=== PATIENT | female | born 1965 | race Hispanic/Latino ===

== ENCOUNTER 2017-12-20 08:26 | Day surgery (SDC) | payer BC, OTHER ==
[~2017-12-20] VITALS: Ht 152.4 cm; Wt 57.6 kg
[~2017-12-20 08:26] MED LIST: CHOLESTEROL MED; CIPROFLOXACN500 MG PO; LISINOP/HCTZ1 TA2 PO; LORTAB 7.5 PO; METFORMIN500 MG PO; PROTONIX40 MG PO; SIMVASTATIN20 MG PO; TRAMADOL HCL50 MG PO; TYLENOL 500MG TAB PO; ULTRAM50 MG PO; ZOFRAN ODT4 MG PO
[2017-12-20 11:49] VITALS: BP 135/81
== END 2017-12-20 11:00 | disposition home or self-care (01) | DRG 392 ==
LOC: ENDO 08:26 → ORM 10:15 → ENDO 10:15
PROVIDERS: ATTEND Surgery
PROC: 0DJ08ZZ Inspection of Upper Intestinal Tract, Via Natural or Artificial Opening Endoscopic (ICD-10-PCS; principal; 2017-12-20)
DX: R13.10 Dysphagia, unspecified (principal); R11.2 Nausea with vomiting, unspecified; Z90.3 Acquired absence of stomach [part of]

== ENCOUNTER 2018-02-22 17:46 | Observation (INO) | payer BC, OTHER ==
[~2018-02-22] VITALS: Ht 152.4 cm; Wt 57.2 kg
[2018-02-22 18:52] LABS: IMMATURE GRANULOCYTES 0.4 % (0.0-1.0); MEAN CORPUSCULAR HGB 19.8 pG CALC (26.0-32.0); MEAN CORPUSCULAR HGB CONC 27.5 g/L CALC (32.0-36.0); NEUT# 4.64 thou/uL (2.00-7.15); RED BLOOD COUNT 3.39 mill/uL (4.20-5.60); RED CELL DISTRI WIDTH 16.1 % (11.5-15.5)
[2018-02-22 18:58] LABS: ALKALINE PHOSPHATASE 86 u/l (38-126); ANION GAP 14 (6-22 (CALC)); BILIRUBIN, TOTAL 0.1 mg/dL (0.0-1.4); BUN 21 mg/dL (7-17); BUN/CREATININE RATIO 28 (12-20 (CALC)); CARBON DIOXIDE 25 mmol/l (22-30); CHLORIDE 103 mmol/l (95-108); CREATININE 0.8 mg/dL (0.5-1.0); GFR > 60 ML/MIN (>=60 (CALC)); GFR FOR AFR.AMER. > 60 ML/MIN (>=60 (CALC)); POTASSIUM 4.4 mmol/l (3.5-5.1); SGOT/AST 38 u/l (14-36); SGPT/ALT 34 u/l (9-52); SODIUM 137 mmol/l (137-146)
[2018-02-22 18:59] LABS: ACT PARTIAL THROMBO TIME 24.2 SECONDS (20.0-32.5); INTERNATIONAL NORMALIZED RATIO 0.9 RATIO (0.7-1.3); PROTHROMBIN TIME 9.8 SECONDS (9.0-12.5)
[2018-02-22 19:00] LABS: HEMATOCRIT 24.4 % (37.0-47.0); HEMOGLOBIN 6.7 g/dl (12.0-16.0)
[2018-02-22 19:01] LABS: ALBUMIN 2.6 g/dL (3.2-5.0); TOTAL PROTEIN 5.1 g/dL (6.3-8.2)
[2018-02-22 19:33] LABS: URINE BILIRUBIN - DIPSTICK NEGATIVE (NEGATIVE); URINE BLOOD DIPSTICK NEGATIVE (NEGATIVE); URINE COLOR YELLOW; URINE GLUCOSE - DIPSTICK NEGATIVE (NEGATIVE); URINE KETONE NEGATIVE (NEGATIVE); URINE LEUK ESTERASE NEGATIVE (NEGATIVE); URINE NITRITE - DIPSTICK NEGATIVE (Negative); URINE PROTEIN - DIPSTICK NEGATIVE (NEG-TRACE); URINE SPECIFIC GRAVITY <=1.005; URINE UROBILINOGEN - DIPSTICK 0.2 E.U./dL (0.2)
[2018-02-22 19:35] LABS: URINE CLARITY CLEAR
[2018-02-22 22:15] VITALS: BP 122/66
[2018-02-22 23:55] VITALS: BP 104/65
[2018-02-23 00:40] VITALS: BP 112/62
[2018-02-23 01:40] VITALS: BP 109/64
[2018-02-23 02:14] VITALS: BP 106/56
[2018-02-23 05:20] LABS: HEMATOCRIT 29.5 % (37.0-47.0); HEMOGLOBIN 8.4 g/dl (12.0-16.0); IMMATURE GRANULOCYTES 0.6 % (0.0-1.0); MEAN CELL VOLUME 72.8 fL CALC (80.0-100.0); MEAN CORPUSCULAR HGB 20.7 pG CALC (26.0-32.0); MEAN CORPUSCULAR HGB CONC 28.5 g/L CALC (32.0-36.0); NEUT# 6.66 thou/uL (2.00-7.15); RED BLOOD COUNT 4.05 mill/uL (4.20-5.60); RED CELL DISTRI WIDTH 16.8 % (11.5-15.5)
[2018-02-23 05:28] LABS: ANION GAP 11 (6-22 (CALC)); BUN 15 mg/dL (7-17); BUN/CREATININE RATIO 24 (12-20 (CALC)); CARBON DIOXIDE 28 mmol/l (22-30); CHLORIDE 105 mmol/l (95-108); CREATININE 0.6 mg/dL (0.5-1.0); GFR > 60 ML/MIN (>=60 (CALC)); GFR FOR AFR.AMER. > 60 ML/MIN (>=60 (CALC)); POTASSIUM 4.7 mmol/l (3.5-5.1); SODIUM 139 mmol/l (137-146)
[2018-02-23 06:33] VITALS: BP 108/62
[2018-02-23 08:10] VITALS: BP 131/70
[2018-02-23] MEDS ORDERED: FERR SULFATE325 MG PO (13:10)
== END 2018-02-23 14:40 | disposition home or self-care (01) | DRG 812 ==
LOC: ED 17:46 → ED-I 20:51 → ED 21:06 → MS2 21:07
PROVIDERS: Emergency Medicine; ADMIT Internal Medicine; ATTEND Internal Medicine
PROC: 30233N1 Transfusion of Nonautologous Red Blood Cells into Peripheral Vein, Percutaneous Approach (ICD-10-PCS; principal; 2018-02-22)
DX: D50.9 Iron deficiency anemia, unspecified (principal); I10 Essential (primary) hypertension; E11.9 Type 2 diabetes mellitus without complications; Z87.11 Personal history of peptic ulcer disease; Z79.84 Long term (current) use of oral hypoglycemic drugs; Z90.3 Acquired absence of stomach [part of]
CPT/HCPCS: G0378; J1756; P9016; S0164

== ENCOUNTER → 2019-01-03 | Outpatient (REF) | payer BC ==
[~2019-01-03] MED LIST changes: +FERR SULFATE325 MG PO
== END | disposition home or self-care (01) | DRG 392 ==
LOC: CT 12:41
PROVIDERS: ATTEND Physician Assistant
DX: R10.12 Left upper quadrant pain (principal)